=== PATIENT | female | born 1980 | race Caucasian/White ===

== ENCOUNTER 2017-09-14 09:05 | Inpatient (IN) ==
[2017-09-14] MEDS ORDERED: Ketorolac 30 MG/ML VIAL IVP ONE (09:28)
[2017-09-14] MEDS ORDERED: 0.9 % Sodium Chloride 1,000 ML IVC ONE (09:28)
[2017-09-14] MEDS ORDERED: Ondansetron 4 MG/2 ML VIAL IVP ONE (09:29)
--- NOTE | 2017-09-14 09:34 | Emergency Department Note ---
Disposition Clinical Impression: Renal calculus Disposition: Home, Self-Care Condition: Good General Adult HPI - General Chief complaint: ED Nausea/Vomiting/Diarrhea Stated complaint: "infected kidney stone" Time Seen by Provider: 09/14/17 09:17 Source: patient Limitations: no limitations Nursing Notes Reviewed: Yes Vital Signs Reviewed: Yes - History of Present Illness HPI Narrative: This is a 37 year-old female with history of hypothyroidism and depression who presents with colicky left flank pain for the past 3 days. She was evaluated at [facility] shortly after symptom onset and found to have a proximal 2.2 mm renal calculus. UA showed infection. Patient was started on Bactrim but switched to Macrobid after the culture showed resistance. Patient presents to the ED this morning with numerous episodes of vomiting over the past 5 hours. She also reports left flank but it has decreased in intensity and become intermittent. No measured fevers. She reports urgency but no dysuria or hematuria. Pt Subjective Complaint: Infected Kidney Stone Onset (ago): day(s) (3) Location: left Radiation: flank Pain Severity: mild Pain Scale: 0 Quality: aching Consistency: intermittent Improves with: nothing Worsens with: nothing Associated symptoms: Reports: nausea/vomiting, other (chills, no measured fevers ). Denies: chest pain, shortness of breath - Related Data Home Medications Medication Instructions Recorded Confirmed FLUoxetine HCl [Prozac] 20 mg PO DAILY 09/14/17 09/14/17 HYDROcodone/Acet 5/325 mg [[place] 1 tab PO Q6H PRN 09/14/17 09/14/17 5-325 mg] Levothyroxine Sodium [Synthroid] [place] [address]/14/17 09/14/17 Levothyroxine [Synthroid] [place] [address]/14/17 09/14/17 Nitrofurantoin Monohyd/M-Cryst 100 mg PO BID 09/14/17 09/14/17 [Macrobid 100 mg Capsule] Allergies Allergy/AdvReac Type Severity Reaction Status Date / Time aspirin Allergy Vomiting Verified 09/14/17 11:15 All systems ED: reviewed and negative except as stated. Constitutional: Reports: chills. Denies: fever Cardiovascular: Denies: chest pain Respiratory: Denies: dyspnea Gastrointestinal: Reports: nausea, vomiting. Denies: abdominal pain Genitourinary: Reports: urgency. Denies: dysuria, hematuria Musculoskeletal: Reports: as per HPI Past Medical History - Past Medical History Medical history: Reports: kidney stones, renal disease, thyroid disease Psychiatric history: Reports: depression MEDICAL RESEARCH TECH history: Reports: bilateral tubal ligation - Social History Smoking Status: Current every day smoker Smokeless Tobacco Status: No Alcohol use: Reports: none Drug use: Reports: none Physical Exam - General Limitations: no limitations General appearance: alert, in no apparent distress - Head Head exam: atraumatic, normocephalic - Eye Eye exam: Present: normal appearance - ENT ENT exam: normal exam, mucous membranes moist - Respiratory Respiratory exam: Present: normal lung sounds bilaterally. Absent: respiratory distress - Cardiovascular Cardiovascular exam: Present: regular rate, normal rhythm, normal heart sounds - Abdominal Exam Abdominal exam: Present: soft, Non-Tender. Absent: distention - Extremities Exam Extremities exam: Present: normal inspection - Neurological Exam Neurological exam: Present: alert, oriented X3. Absent: motor sensory deficit - Psychiatric Psychiatric exam: Present: normal affect, normal mood - Skin Skin exam: Present: warm, dry, intact Course - Reevaluation(s) Reevaluation #1: On recheck, patient remains comfortable-appearing. Reviewed test results and treatment options with patient. She has elected to be admitted for nephrostomy tube placement and urology consult. Time: 11:02 - Consultations Consultation #1: Reviewed case with Dr. Treadwell. Patient may be admitted for perc-nephrostomy tube by IR, but since she is not ill-appearing, follow-up with Dr. Treadwell tomorrow in clinic at 10:15 is also an option. Time: 10:53 Vital Signs Temperature 98.6 F 09/14/17 09:06 Pulse Rate 94 09/14/17 09:06 Respiratory Rate 18 09/14/17 09:06 Blood Pressure 121/79 09/14/17 09:06 O2 Sat by Pulse Oximetry 98 09/14/17 09:06 Temperature 100.8 F H 09/14/17 19:34 Pulse Rate 72 09/14/17 19:34 Respiratory Rate 15 09/14/17 19:34 Blood Pressure 104/61 09/14/17 19:34 O2 Sat by Pulse Oximetry 97 09/14/17 19:34 Oxygen Delivery Oxygen Delivery Room Air Medical Decision Making - Lab Data Lab results reviewed: Yes I reviewed the patient's lab results. Result diagrams: 09/14/17 09:15 09/14/17 09:15 Lab Results 09/14/17 09/14/17 09/14/17 Range/Units 09:15 09:15 09:15 WBC 9.7 (4.3-11.1) K/mcL RBC 3.92 (3.82-4.97) M/mcL Hgb 11.8 (11.5-15.4) g/dL Hct 35.2 L (35.3-44.9) % MCV 89.8 (83.0-100.0) fL MCH 30.1 (28.0-33.3) pg MCHC 33.5 (31.6-35.5) g/dL RDW 12.2 (11.5-14.5) % Plt Count 261 (140-400) K/mcL MPV 12.0 (9.4-12.4) fL Immature Gran % 0.3 (0-4) % Seg Neutrophils % 78.9 % Lymphocytes % 10.6 % Monocytes % 8.9 % Eosinophils % 0.9 % Basophils % 0.4 % Neutrophils # 7.6 (1.6-8.9) K/mcL Lymphocytes # 1.0 (0.6-4.6) K/mcL Monocytes # 0.9 (0.0-1.3) K/mcL Eosinophils # 0.1 (0.0-0.6) K/mcL Basophils # 0.0 (0.0-0.2) K/mcL PT 11.5 (9.4-12.1) Seconds INR 1.1 Sodium 136 (136-145) mEq/L Potassium 4.0 (3.5-5.1) mEq/L Chloride 108 H (98-107) mEq/L Carbon Dioxide 22 L (23-29) mEq/L BUN 11 (6-20) mg/dL Creatinine 0.87 (0.60-1.20) mg/dL Est GFR ( Amer) > 60 (> 60) Est GFR (Non-Af Amer) > 60 (> 60) BUN/Creatinine Ratio 13 (6-26) Glucose 92 (70-105) mg/dL Calculated Osmolality 281 (280-300) Calcium 8.8 (8.6-10.3) mg/dL Urine Color (Yellow) Urine Clarity (Clear) Urine pH (5.0-8.0) pH Units Ur Specific Joice (1.010-1.025) Urine Protein (Neg-Trace) mg/dL Urine Glucose (UA) (Normal) mg/dL Urine Ketones (Negative) mg/dL Urine Blood (Negative) Urine Nitrite (Negative) Urine Bilirubin (Negative) Urine Urobilinogen (Normal) mg/dL Ur Leukocyte Esterase (Negative) Urine Microscopic RBC (0-3) per hpf Urine Microscopic WBC (0-3) per hpf Ur Squamous Epith Cells (None-Few) per lpf Urine Bacteria (None-Few) per hpf Hyaline Casts (None-Few) per lpf Ur Culture Indicated? (NO) 09/14/17 Range/Units 09:32 WBC (4.3-11.1) K/mcL RBC (3.82-4.97) M/mcL Hgb (11.5-15.4) g/dL Hct (35.3-44.9) % MCV (83.0-100.0) fL MCH (28.0-33.3) pg MCHC (31.6-35.5) g/dL RDW (11.5-14.5) % Plt Count (140-400) K/mcL MPV (9.4-12.4) fL Immature Gran % (0-4) % Seg Neutrophils % % Lymphocytes % % Monocytes % % Eosinophils % % Basophils % % Neutrophils # (1.6-8.9) K/mcL Lymphocytes # (0.6-4.6) K/mcL Monocytes # (0.0-1.3) K/mcL Eosinophils # (0.0-0.6) K/mcL Basophils # (0.0-0.2) K/mcL PT (9.4-12.1) Seconds INR Sodium (136-145) mEq/L Potassium (3.5-5.1) mEq/L Chloride (98-107) mEq/L Carbon Dioxide (23-29) mEq/L BUN (6-20) mg/dL Creatinine (0.60-1.20) mg/dL Est GFR ( Amer) (> 60) Est GFR (Non-Af Amer) (> 60) BUN/Creatinine Ratio (6-26) Glucose (70-105) mg/dL Calculated Osmolality (280-300) Calcium (8.6-10.3) mg/dL Urine Color Yellow (Yellow) Urine Clarity Slightly Hazy (Clear) Urine pH 6.5 (5.0-8.0) pH Units Ur Specific Joice 1.013 (1.010-1.025) Urine Protein 30 H (Neg-Trace) mg/dL Urine Glucose (UA) Normal (Normal) mg/dL Urine Ketones 40 H (Negative) mg/dL Urine Blood Negative (Negative) Urine Nitrite Negative (Negative) Urine Bilirubin Negative (Negative) Urine Urobilinogen Normal (Normal) mg/dL Ur Leukocyte Esterase Large H (Negative) Urine Microscopic RBC 5-15 H (0-3) per hpf Urine Microscopic WBC TNTC H (0-3) per hpf Ur Squamous Epith Cells Many H (None-Few) per lpf Urine Bacteria Few (None-Few) per hpf Hyaline Casts Few (None-Few) per lpf Ur Culture Indicated? NO. A (NO)
[2017-09-14 09:44] LABS: Bilirubin,Urine Negative (Negative); Blood,Urine Negative (Negative); Color,Urine Yellow (Yellow); Glucose,Urine (UA) Normal (Normal); Ketones,Urine 40 mg/dL (Negative); Leukocyte Esterase,Urine Large (Negative); Nitrite,Urine Negative (Negative); PH,Urine 6.5 pH Units (5.0-8.0); Protein,Urine 30 mg/dL (Neg-Trace); Specific Gravity,Urine 1.013 (1.010-1.025); Urobilinogen,Urine Normal (Normal)
[2017-09-14 09:45] LABS: Bacteria,Urine Few per hpf (None-Few); Hyaline Casts,Urine Few per lpf (None-Few); Squamous Epithelial Cell,Urine Many per lpf (None-Few); WBC,Urine TNTC per hpf (0-3)
[2017-09-14 09:46] LABS: Clarity,Urine Slightly Hazy (Clear)
[2017-09-14 09:47] LABS: Basophils % 0.4 %; Eosinophils # 0.1 K/mcL (0.0-0.6); Eosinophils % 0.9 %; Hematocrit 35.2 % (35.3-44.9); Hemoglobin 11.8 g/dL (11.5-15.4); Immature Granulocytes % 0.3 % (0-4); Lymphocytes % 10.6 %; Mean Corpuscular HGB Conc 33.5 g/dL (31.6-35.5); Mean Corpuscular Hemoglobin 30.1 pg (28.0-33.3); Mean Corpuscular Volume 89.8 fL (83.0-100.0); Monocytes # 0.9 K/mcL (0.0-1.3); Monocytes % 8.9 %; Neutrophils # 7.6 K/mcL (1.6-8.9); Platelet Count 261 K/mcL (140-400); Red Blood Count 3.92 M/mcL (3.82-4.97); Red Cell Distribution Width 12.2 % (11.5-14.5); Segmented Neutrophils % 78.9 %
[2017-09-14 09:48] LABS: BUN/Creatinine Ratio 13 (6-26); Blood Urea Nitrogen 11 mg/dL (6-20); Calcium 8.8 mg/dL (8.6-10.3); Carbon Dioxide 22 mEq/L (23-29); Chloride 108 mEq/L (98-107); Glucose 92 mg/dL (70-105); Osmolality,Calculated 281 (280-300); Sodium 136 mEq/L (136-145); eGFR For African Americans > 60 (> 60); eGFR For Non-African Americans > 60 (> 60)
[2017-09-14 12:17] LABS: INR 1.1; Prothrombin Time 11.5 Seconds (9.4-12.1)
[2017-09-14] MEDS ORDERED: Naloxone 0.4 MG/ML INJ IVP PRN (12:30)
[2017-09-14] MEDS ORDERED: Acetaminophen 325 MG TABLET PO PRN (12:30)
[2017-09-14] MEDS ORDERED: Ondansetron 4 MG/2 ML VIAL IVP PRN (12:30)
--- NOTE | 2017-09-14 13:04 | Internal Med History&Physical ---
Date of Encounter: 09/14/17 Time of Encounter: 11:20 Internal Medicine - H&P: HPI Chief complaint: Fever, N/V Admitted From: Emergency Dept Plans for Post Hospital Care: Home History of present illness: Ms. Garcia is a 37 year old female with known PMH of Hypothyroidism, anxiety, and depression pt presented to ER with intractable nausea and vomiting form last 2 days. She went to [facility] ER on 09/11/17 with Left flank colicky pain, and founf to have a 2.2 CM Left renal calculi with mild to moderate hydronephrosis. She does have UTI so sent her home on Bactrim, later urine cx came back as bactrim resistant E. Coli so switched her to Macrobid. However now she presented to with weakness, fever, chills and intractable N/V. Still has intermittent left flank pain. Past Med Surg Social Fam HX - Past Medical History Medical history: kidney stones, renal disease, thyroid disease Psychiatric history: depression - Past Surgical History Additional surgical history: CYST REMOVED LT HAND. CARPAL TUNNEL SURGERY. tubes in ears. - Social History Smoking Status: Current every day smoker Packs per day: 1/2 to full Smokeless Tobacco Status: No Alcohol use: none Drug use: none - Family History Mother Living Status: Still Living Hx Family Endocrine Disorder: Yes (Diabetic) Father Living Status: Age at : 45 Cause of : Injury Internal Medicine - H&P: Meds FLUoxetine HCl [Prozac] 20 mg PO DAILY 09/14/17 [History] HYDROcodone/Acet 5/325 mg [[place] 5-325 mg] 1 tab PO Q6H PRN 09/14/17 [History] Levothyroxine Sodium [Synthroid] 200 mcg PO 30 09/14/17 [History] Levothyroxine [Synthroid] [place] [address]/14/17 [History] Nitrofurantoin Monohyd/M-Cryst [Macrobid 100 mg Capsule] 100 mg PO BID 09/14/17 [History] 3 Allergy/AdvReac Type Severity Reaction Status Date / Time aspirin Allergy Vomiting Verified 09/14/17 11:15 All Systems PM: A 10-system review of systems was performed and is negative for pertinent findings except as documented above in the HPI. Review of systems: All the systems are reviewed everything is benign except the systems and symptoms I mentioned in the history of present illness - Constitutional Vitals: Temp Pulse Resp BP Pulse Ox 98.4 F 60 14 90/49 96 09/14/17 11:55 09/14/17 11:55 09/14/17 11:55 09/14/17 11:55 09/14/17 11:55 General appearance: Present: cooperative, mild distress, A&O X 3, answers questions appropriately - Head Head exam: Present: atraumatic, normal inspection - Neck Neck exam general surgery: Present: supple - Respiratory Respiratory exam: Present: CTAB. Absent: accessory muscle use, rales, rhonchi, wheezes - Cardiovascular Cardiovascular exam: Present: RRR, +S1, +S2. Absent: systolic murmur, tachycardia - GI/Abdominal GI/Abdominal exam: Present: normal bowel sounds, soft. Absent: rebound, rigid, tenderness - Extremities Exam Extremities exam: Absent: calf tenderness, pedal edema, tenderness - Back Exam Back exam: Absent: CVA tenderness (L), CVA tenderness (R) - Neurological Exam Neurological exam: Present: alert, oriented X3 - Psychiatric Psychiatric exam: Present: normal affect, normal mood Internal Med - H&P Results - Labs CBC & Chem 7: 09/14/17 09:15 09/14/17 09:15 - Assessment and plan (1) UTI (urinary tract infection) Current Visit: Yes Status: Acute Assessment and plan: Admit the pt into Med Surg She failed out pt therapy reviewed urine cx from 09/11 growing E. coli since sensitivity to fluoroquinolones So started her on Cipro IV hydration Qualifiers: Urinary tract infection type: acute cystitis Hematuria presence: without hematuria Qualified Code(s): N30.00 - Acute cystitis without hematuria (2) Obstructive uropathy Current Visit: No Status: Acute Assessment and plan: Reviewed CT of Abd from 09/11/17 showed mild to mortared hydronephrosis also has 2.2 cm size left renal pelvic calculi ER attending already talked to Urologist who recommend IR consult for possible percutaneous nephrosotomy continue symptomatic and supportive care pain medication is needed (3) Renal calculus, left Current Visit: Yes Status: Acute Assessment and plan: Urology consulted possible lithotripsy in AM (4) Anxiety Current Visit: Yes Status: Acute Assessment and plan: Resumed home medications (5) Tobacco dependence Current Visit: Yes Status: Acute Assessment and plan: Counseled to quit smoking placed on nicotine patch - Time Spent With Patient Total time spent is greater than 50% in coordination of care (as documented) at patient's floor/unit and/or counseling patient:
--- NOTE | 2017-09-14 13:06 | Urology - Consult Note ---
Date of Encounter: 09/14/17 Time of Encounter: 13:04 - Assessment and Plan (1) Renal calculus, left Current Visit: Yes Status: Acute Assessment and plan: 37-year-old woman with a large left renal stone is seen in consultation. Given the size of her stone and her infection, I think it is reasonable to proceed with a left nephrostomy tube placement. We reviewed the risks of the procedure. This will provide us access for eventual left percutaneous nephrolithotomy. I answered all her questions. She is willing to proceed. (2) UTI (urinary tract infection) Current Visit: Yes Status: Acute Assessment and plan: We will continue her on IV antibiotic for now. We can transition over to ciprofloxacin. Qualifiers: Urinary tract infection type: acute cystitis Hematuria presence: without hematuria Qualified Code(s): N30.00 - Acute cystitis without hematuria (3) Obstructive uropathy Current Visit: No Status: Acute Urology CN:HPI Consult date: 09/14/17 Reason for consult Urology: Other (Left kidney stone) History of present illness: 37-year-old woman with a history of nephrolithiasis has been admitted for a UTI with an obstructing left renal stone. She had a CT scan on 09/11/2017 which showed a 2.2 cm left ureteropelvic junction stone with evidence hydronephrosis. She was diagnosed with a urinary tract infection. It was resistant to Bactrim. She then developed nausea and vomiting. She came back to the emergency room. She was given IV antibiotic and was admitted for further care. I discussed with the patient her stone and treatment options. Given the size, she would be best treated with a left percutaneous nephrolithotomy. I would recommend placement of a nephrostomy tube which would allow us to obtain access at an earlier time point. She is agreeable with this approach. Past Med Surg Social Fam HX - Past Medical History Medical history: kidney stones, renal disease, thyroid disease Psychiatric history: depression - Past Surgical History Additional surgical history: CYST REMOVED LT HAND. CARPAL TUNNEL SURGERY. tubes in ears. - Social History Smoking Status: Current every day smoker Packs per day: 1/2 to full Smokeless Tobacco Status: No Alcohol use: none Drug use: none - Family History Mother Living Status: Still Living Hx Family Endocrine Disorder: Yes (Diabetic) Father Living Status: Age at : 45 Cause of : Injury Medications and Allergies FLUoxetine HCl [Prozac] 20 mg PO DAILY 09/14/17 [History] HYDROcodone/Acet 5/325 mg [[place] 5-325 mg] 1 tab PO Q6H PRN 09/14/17 [History] Levothyroxine Sodium [Synthroid] [place] [address]/14/17 [History] Levothyroxine [Synthroid] [place] [address]/14/17 [History] Nitrofurantoin Monohyd/M-Cryst [Macrobid 100 mg Capsule] 100 mg PO BID 09/14/17 [History] 3 Allergy/AdvReac Type Severity Reaction Status Date / Time aspirin Allergy Vomiting Verified 09/14/17 11:15 Review of Systems - Constitutional no chills, no fever(s) - EENT Nose, mouth and throat: no dizziness - Cardiovascular no chest pain - Respiratory no dyspnea - Gastrointestinal nausea, vomiting - Genitourinary Genitourinary: flank pain, no hematuria - Musculoskeletal no back pain - Integumentary no erythema, no rash - Neurological no weakness - Psychiatric no suicidal ideation - Hematologic/Lymphatic no easy bleeding - Allergic/Immunologic no wheezing Exam Initial Vital Signs Temp Pulse Resp BP Pulse Ox 98.6 F 94 18 121/79 98 09/14/17 09:06 09/14/17 09:06 09/14/17 09:06 09/14/17 09:06 09/14/17 09:06 - General physical appearance Present: well developed, well nourished, no distress - Eyes Absent: icteric - ENT Present: normal nares - Neck Present: trachea midline - Respiratory Present: normal respiratory effort - Cardiovascular Cardiovascular exam IM: RRR - Abdomen Abdomen: Present: soft - Integumentary Present: no rash - Neurologic Present: normal coordination - Musculoskeletal Present: normal gait Urology Results - Labs 09/14/17 09:15 09/14/17 09:15 Abnormal lab results Hct 35.2 % (35.3-44.9) L 09/14/17 09:15 Chloride 108 mEq/L (98-107) H 09/14/17 09:15 Carbon Dioxide 22 mEq/L (23-29) L 09/14/17 09:15 Urine Protein 30 mg/dL (Neg-Trace) H 09/14/17 09:32 Urine Ketones 40 mg/dL (Negative) H 09/14/17 09:32 Ur Leukocyte Esterase Large (Negative) H 09/14/17 09:32 Urine Microscopic RBC 5-15 per hpf (0-3) H 09/14/17 09:32 Urine Microscopic WBC TNTC per hpf (0-3) H 09/14/17 09:32 Ur Squamous Epith Cells Many per lpf (None-Few) H 09/14/17 09:32 Ur Culture Indicated? NO. (NO) A 09/14/17 09:32 All other labs normal. - Imaging CT scan - abdomen: report reviewed, image reviewed CT scan - pelvis: report reviewed, image reviewed Consult Discharge Plan - Plan Referrals: Kenny Alexandra, [employer] [Primary Care Provider] -
[2017-09-14] MEDS ORDERED: 0.9 % Sodium Chloride 500 ML ONE ×2 (13:50→14:04)
[2017-09-14] MEDS ORDERED: *HR* FentaNYL (PF) 100 MCG/2 ML VIAL IVP ONE ×3 (13:54→14:37)
[2017-09-14] MEDS ORDERED: *HR* Midazolam HCl 2 MG/2 ML VIAL IVP ONE ×2 (13:54→14:32)
[2017-09-14] MEDS ORDERED: *HR* FentaNYL (PF) 100 MCG/2 ML VIAL ONE ×2 (14:25→14:38)
[2017-09-14] MEDS ORDERED: *HR* Midazolam HCl 2 MG/2 ML VIAL ONE (14:25)
--- NOTE | 2017-09-14 16:13 | IR Procedure Note ---
Date of procedure: 09/14/17 Consent Obtained: Written consent Timeout: Correct patient and procedure verified, Correct site verified, Time out performed, Skin prep completed Local anesthetic: Lidocaine 1% Indications: Left sided obstruction, nephrolithiasis Procedure Performed: Left perc neph tube placement Was there an custody assistant present: No Site/Technique: 10fr drain placement. Results/Findings: Draining well. Minimal contrast extended into ureter around stone. Estimated blood loss (cc): 1 Complications: None; Tolerated procedure well Post Procedure Treatment Plan: Monitoring in pts room Specimen: n/a
[2017-09-14] MEDS: Nicotine 21 MG PATCH.TD24 TD SCH (16:32)
[2017-09-14] MEDS: 0.9 % Sodium Chloride 1,000 ML IVC SCH (16:41)
[2017-09-14] MEDS: *HR* HYDROcodone/Acet 5/325 mg TABLET PO PRN ×2 (16:41→22:08)
[2017-09-14] MEDS: *HR* Promethazine 25 MG/ML VIAL IVP PRN (22:08)
[2017-09-15 04:48] LABS: Basophils % 0.2 %; Eosinophils # 0.1 K/mcL (0.0-0.6); Eosinophils % 1.5 %; Hematocrit 32.1 % (35.3-44.9); Hemoglobin 10.5 g/dL (11.5-15.4); Immature Granulocytes % 0.4 % (0-4); Lymphocytes # 0.8 K/mcL (0.6-4.6); Lymphocytes % 9.1 %; Mean Corpuscular HGB Conc 32.7 g/dL (31.6-35.5); Mean Corpuscular Hemoglobin 29.8 pg (28.0-33.3); Mean Corpuscular Volume 91.2 fL (83.0-100.0); Monocytes # 1.2 K/mcL (0.0-1.3); Monocytes % 12.9 %; Neutrophils # 6.9 K/mcL (1.6-8.9); Platelet Count 227 K/mcL (140-400); Red Blood Count 3.52 M/mcL (3.82-4.97); Red Cell Distribution Width 12.1 % (11.5-14.5); Segmented Neutrophils % 75.9 %
[2017-09-15] MEDS: 0.9 % Sodium Chloride 1,000 ML IVC SCH (04:52)
[2017-09-15] MEDS: *HR* Promethazine 25 MG/ML VIAL IVP PRN (05:04)
[2017-09-15] MEDS: *HR* HYDROcodone/Acet 5/325 mg TABLET PO PRN (05:05)
[2017-09-15 05:08] LABS: BUN/Creatinine Ratio 10 (6-26); Blood Urea Nitrogen 9 mg/dL (6-20); Calcium 8.1 mg/dL (8.6-10.3); Carbon Dioxide 21 mEq/L (23-29); Chloride 111 mEq/L (98-107); Glucose 97 mg/dL (70-105); Osmolality,Calculated 281 (280-300); Potassium 4.1 mEq/L (3.5-5.1); Sodium 136 mEq/L (136-145); eGFR For African Americans > 60 (> 60); eGFR For Non-African Americans > 60 (> 60)
[2017-09-15] MEDS ORDERED: *HR* Enoxaparin 40 MG/0.4 ML SYRINGE SQ SCH (06:00)
[2017-09-15] MEDS ORDERED: Levothyroxine 25 MCG TABLET PO SCH (06:30)
[2017-09-15 07:33] VITALS: BP 93/60
--- NOTE | 2017-09-15 07:54 | Urology Progress Note ---
Date of Encounter: 09/15/17 Time of Encounter: 07:52 - Assessment and Plan (1) Renal calculus, left Current Visit: Yes Status: Acute Assessment and plan: s/p left neph tube placement. Will plan for left PCNL at a later date. Okay to d/c home when clear per IM. Continue ciprofloxacin upon discharge. (2) UTI (urinary tract infection) Current Visit: Yes Status: Acute Qualifiers: Urinary tract infection type: acute cystitis Hematuria presence: without hematuria Qualified Code(s): N30.00 - Acute cystitis without hematuria (3) Obstructive uropathy Current Visit: No Status: Acute Progress Note Narrative: 37 year old woman with a history of large left renal stone. She had a left nephrostomy tube placed yesterday. Doing well today. Objective Initial Vital Signs Temp Pulse Resp BP Pulse Ox 98.6 F 94 18 121/79 98 09/14/17 09:06 09/14/17 09:06 09/14/17 09:06 09/14/17 09:06 09/14/17 09:06 - General physical appearance Present: well developed, well nourished, no distress - Respiratory Present: normal respiratory effort - Abdomen Present: soft (Clear urine from left neph tube) - Labs 09/15/17 04:04 09/15/17 04:04 Diabetes panel 09/15/17 Range/Units 04:04 Sodium 136 (136-145) mEq/L Potassium 4.1 (3.5-5.1) mEq/L Chloride 111 H (98-107) mEq/L Carbon Dioxide 21 L (23-29) mEq/L BUN 9 (6-20) mg/dL Creatinine 0.91 (0.60-1.20) mg/dL Glucose 97 (70-105) mg/dL Calcium 8.1 L (8.6-10.3) mg/dL Calcium panel 09/15/17 Range/Units 04:04 Calcium 8.1 L (8.6-10.3) mg/dL Pituitary panel 09/15/17 Range/Units 04:04 Sodium 136 (136-145) mEq/L Potassium 4.1 (3.5-5.1) mEq/L Chloride 111 H (98-107) mEq/L Carbon Dioxide 21 L (23-29) mEq/L BUN 9 (6-20) mg/dL Creatinine 0.91 (0.60-1.20) mg/dL Glucose 97 (70-105) mg/dL Calcium 8.1 L (8.6-10.3) mg/dL Adrenal panel 09/15/17 Range/Units 04:04 Sodium 136 (136-145) mEq/L Potassium 4.1 (3.5-5.1) mEq/L Chloride 111 H (98-107) mEq/L Carbon Dioxide 21 L (23-29) mEq/L BUN 9 (6-20) mg/dL Creatinine 0.91 (0.60-1.20) mg/dL Glucose 97 (70-105) mg/dL Calcium 8.1 L (8.6-10.3) mg/dL - VTE Documentation of Mechanical Device: Intermittent pneumatic compression device Consult Discharge Plan - Plan Referrals: Kenny Alexandra, [employer] [Primary Care Provider] -
[2017-09-15] MEDS: Nicotine 21 MG PATCH.TD24 TD SCH (08:42)
[2017-09-15] MEDS ORDERED: FLUoxetine 20 MG CAPSULE PO SCH (09:00)
--- NOTE | 2017-09-15 10:44 | Discharge Summary ---
Date of Encounter: 09/15/17 Time of Encounter: 09:30 - Discharge Diagnosis (1) Obstructive uropathy Priority: Primary Status: Acute (2) UTI (urinary tract infection) Priority: Primary Status: Acute Qualifiers: Urinary tract infection type: acute cystitis Hematuria presence: without hematuria Qualified Code(s): N30.00 - Acute cystitis without hematuria (3) Renal calculus, left Priority: Primary Status: Acute (4) Anxiety Priority: Secondary Status: Acute (5) Tobacco dependence Priority: Secondary Status: Acute Hospital course: History of present illness: Ms. Garcia is a 37 year old female with known PMH of Hypothyroidism, anxiety, and depression pt presented to ER with intractable nausea and vomiting form last 2 days. She went to [facility] ER on 09/11/17 with Left flank colicky pain, and founf to have a 2.2 CM Left renal calculi with mild to moderate hydronephrosis. She does have UTI so sent her home on Bactrim, later urine cx came back as bactrim resistant E. Coli so switched her to Macrobid. However now she presented to with weakness, fever, chills and intractable N/V. Still has intermittent left flank pain. She was admitted. She was seen by urology in consultation who proceeded with a left percutaneous nephrostomy tube placement. She was done on the evening of September 14. She tolerated the procedure well and on follow-up urology stated patient was stable for discharge. Land for left percutaneous nephrolithotomy on follow-up. Patient was placed on Cipro. Urine culture on September 11 showed Escherichia coli sensitive to Cipro. Patient is currently day #2 of a planned 14 day course of Cipro. This can be adjusted by urology with regards to duration on follow-up visit. On day of discharge patient was feeling well. She had some mild left flank pain which was much improved. No fevers or chills. She was tolerating a diet. No nausea. Asking to go home. The patient was initially admitted inpatient status, but she improved much faster than expected and is being discharged after only 1 night stay. - Time Spent with Patient Total time spent providing and/or coordinating discharge services: Less than 30 minutes - Discharge Medications Home Medications: FLUoxetine HCl [Prozac] 20 mg PO DAILY 09/14/17 [History] HYDROcodone/Acet 5/325 mg [[place] 5-325 mg] 1 tab PO Q6H PRN 09/14/17 [History] Levothyroxine Sodium [Synthroid] [place] [address]/14/17 [History] Levothyroxine [Synthroid] [place] [address]/14/17 [History] Nitrofurantoin Monohyd/M-Cryst [Macrobid 100 mg Capsule] 100 mg PO BID 09/14/17 [History] Allergies/Adverse Reactions: 3 Allergy/AdvReac Type Severity Reaction Status Date / Time aspirin Allergy Vomiting Verified 09/14/17 11:15 Date of admission: 09/14/17 11:22 Primary care physician: Kenny Alexandra CNP Discharging clinician: Byron Bland Anticipated date of discharge: 09/15/17 - Constitutional Vitals: Temp Pulse Resp BP Pulse Ox 97.6 F 60 17 93/60 96 09/15/17 08:34 09/15/17 08:34 09/15/17 08:34 09/15/17 08:34 09/15/17 08:34 General appearance: Present: cooperative, mild distress, A&O X 3, answers questions appropriately - Head Head exam: Present: atraumatic, normocephalic - Eye Eye exam: Present: PERRL, conjuntiva pink, sclera anicteric Pupils: Present: PERRL - Neck Neck exam general surgery: Present: supple, trachea midline. Absent: lymphadenopathy - Respiratory Respiratory exam: Present: CTAB. Absent: accessory muscle use, rales, rhonchi, wheezes - Cardiovascular Cardiovascular exam: Present: RRR, +S1, +S2. Absent: diastolic murmur, gallop, rubs, systolic murmur - GI/Abdominal GI/Abdominal exam: Present: normal bowel sounds, soft, no peritoneal signs. Absent: distended, tenderness Additional comments: Left costovertebral angle tenderness - Extremities Exam Extremities exam: Present: warm, radial pulses palpable and symmetrical. Absent : calf tenderness, cyanotic, pedal edema - Neurological Exam Neurological exam: Present: CN II-XII intact, oriented X3, no focal deficits. Absent: pronater drift, facial droop, speech deficit - Skin Skin exam: Present: dry, intact - Patient Status Disposition: Home, Self-Care Condition: Good Functional capacity at discharge: independent ambulation Overall status at discharge: patient is progressing back to baseline - Discharge Instructions Instructions: Kidney Stones (GEN) Follow Up With: Kenny Alexandra [employer]ATIC FACILITY MANAGER [Primary Care Provider] - Additional Instructions: Follow-up with urology as arranged. Keep well hydrated, drink at least 2-1/2 L of fluid daily. Return immediately should she have fevers, chills or worsening pain Tobacco cessation recommended - VTE Documentation of Mechanical Device: Intermittent pneumatic compression device
== END 2017-09-15 13:17 | disposition home or self-care (01) | DRG 463 ==
LOC: EMEROO 09:05 → 3ANU 11:22
PROVIDERS: ADMIT Family Medicine; ATTEND Family Medicine

== ENCOUNTER 2018-07-26 20:57 | Inpatient (IN) ==
[2018-07-26] MEDS ORDERED: 0.9 % Sodium Chloride 1,000 ML IVC ONE ×2 (22:10→22:24)
[2018-07-26] MEDS ORDERED: *HR* Morphine Immed Rel 30 MG TABLET PO STA (22:13)
[2018-07-26] MEDS ORDERED: Ondansetron 4 MG/2 ML VIAL IVP ONE (22:14)
[2018-07-26 22:19] LABS: Bilirubin,Urine Small (Negative); Blood,Urine Large (Negative); Clarity,Urine Turbid (Clear); Color,Urine Yellow (Yellow); Glucose,Urine (UA) Normal (Normal); Ketones,Urine Negative (Negative); Leukocyte Esterase,Urine Large (Negative); Nitrite,Urine Negative (Negative); Protein,Urine 100 mg/dL (Neg-Trace); Specific Gravity,Urine 1.015 (1.010-1.025); Urobilinogen,Urine Normal (Normal)
[2018-07-26 22:24] LABS: Basophils % 0.2 %; Eosinophils # 0.1 K/mcL (0.0-0.6); Eosinophils % 0.5 %; Hematocrit 35.5 % (35.3-44.9); Hemoglobin 11.5 g/dL (11.5-15.4); Immature Granulocytes % 2.5 % (0-4); Lymphocytes # 1.1 K/mcL (0.6-4.6); Lymphocytes % 5.5 %; Mean Corpuscular HGB Conc 32.4 g/dL (31.6-35.5); Mean Corpuscular Hemoglobin 29.1 pg (28.0-33.3); Mean Corpuscular Volume 89.9 fL (83.0-100.0); Mean Platelet Volume 12.3 fL (9.4-12.4); Monocytes # 0.7 K/mcL (0.0-1.3); Monocytes % 3.8 %; Platelet Count 173 K/mcL (140-400); Red Blood Count 3.95 M/mcL (3.82-4.97); Red Cell Distribution Width 14.5 % (11.5-14.5); Segmented Neutrophils % 87.5 %
[2018-07-26 22:28] LABS: Albumin 3.1 g/dL (3.5-5.7); Albumin/Globulin Ratio 1.1 (1.1-2.2); Bilirubin,Direct 0.1 mg/dL (0.0-0.2); Bilirubin,Indirect 0.2 mg/dL (0.0-1.2); Bilirubin,Total 0.3 mg/dL (0.3-1.0); Calcium 8.5 mg/dL (8.6-10.3); Globulin 2.7 g/dL (2.4-3.5); Potassium 3.7 mEq/L (3.5-5.1); Total Protein 5.8 g/dL (6.4-8.9)
[2018-07-26 22:44] LABS: RBC,Urine 50-100 per hpf (0-3); Squamous Epithelial Cell,Urine Many per lpf (None-Few); WBC,Urine 50-100 per hpf (0-3)
[2018-07-26 22:45] LABS: Bacteria,Urine Moderate per hpf (None-Few); Hyaline Casts,Urine None Seen per lpf (None-Few)
[2018-07-26 22:48] LABS: Burr Cells 1+ (Not Present); Dohle Bodies Present (Not Present)
--- NOTE | 2018-07-26 23:44 | Emergency Department Note ---
Disposition Clinical Impression: Ureteral stone, KYLAH (acute kidney injury), Intractable vomiting, Left flank pain Disposition: Admitted As Inpatient Condition: Fair Referrals: Rosalia Smith CNP [Primary Care Provider] - Forms: Work/School Release, ED Satisfaction Letter General Adult HPI - General Chief complaint: ED General Medical Stated complaint: Kidney infection sent by Dr Cancino Time Seen by Provider: 07/26/18 21:48 Source: patient Limitations: no limitations - History of Present Illness Pain Scale: 6 - Related Data Home Medications Medication Instructions Recorded Confirmed FLUoxetine HCl [Prozac] 20 mg PO DAILY 09/14/17 07/20/18 Levothyroxine Sodium [Synthroid] 200 mcg PO 0630 09/14/17 07/20/18 Oxybutynin [Ditropan] 5 mg PO DAILY 01/28/18 07/20/18 Previous Rx's Medication Instructions Recorded Naproxen [Naprosyn] 500 mg PO BID #10 tablet 07/20/18 Allergies Allergy/AdvReac Type Severity Reaction Status Date / Time aspirin Allergy Vomiting Verified 10/15/17 20:32 Past Medical History - Past Medical History Medical history: Reports: kidney stones, thyroid disease Psychiatric history: Reports: depression 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 - Social History Smoking Status: Current every day smoker Smokeless Tobacco Status: No Alcohol use: Reports: none Drug use: Reports: none Physical Exam - General Limitations: no limitations General appearance: alert Course Vital Signs Temperature 98.4 F 07/26/18 21:10 Pulse Rate 72 07/26/18 21:10 Respiratory Rate 17 07/26/18 21:10 Blood Pressure 118/66 07/26/18 21:10 O2 Sat by Pulse Oximetry 95 07/26/18 21:10 Temperature 98.4 F 07/26/18 21:10 Pulse Rate 72 07/26/18 21:10 Respiratory Rate 17 07/26/18 21:10 Blood Pressure 118/66 07/26/18 21:10 O2 Sat by Pulse Oximetry 95 07/26/18 21:10 Oxygen Delivery Oxygen Delivery Room Air Medical Decision Making - Lab Data Result diagrams: 07/26/18 21:55 07/26/18 21:55 Lab Results 07/26/18 07/26/18 07/26/18 Range/Units 21:52 21:52 21:55 WBC 19.4 H (4.3-11.1) K/mcL RBC 3.95 (3.82-4.97) M/mcL Hgb 11.5 (11.5-15.4) g/dL Hct 35.5 (35.3-44.9) % MCV 89.9 (83.0-100.0) fL MCH 29.1 (28.0-33.3) pg MCHC 32.4 (31.6-35.5) g/dL RDW 14.5 (11.5-14.5) % Plt Count 173 (140-400) K/mcL MPV 12.3 (9.4-12.4) fL Immature Gran % 2.5 (0-4) % Seg Neutrophils % 87.5 % Lymphocytes % 5.5 % Monocytes % 3.8 % Eosinophils % 0.5 % Basophils % 0.2 % Neutrophils # 17.0 H (1.6-8.9) K/mcL Lymphocytes # 1.1 (0.6-4.6) K/mcL Monocytes # 0.7 (0.0-1.3) K/mcL Eosinophils # 0.1 (0.0-0.6) K/mcL Basophils # 0.0 (0.0-0.2) K/mcL Dohle Bodies Present A (Not Present) Uzair Cells 1+ A (Not Present) Sodium (136-145) mEq/L Potassium (3.5-5.1) mEq/L Chloride (98-107) mEq/L Carbon Dioxide (23-29) mEq/L BUN (6-20) mg/dL Creatinine (0.60-1.20) mg/dL Est GFR ( Amer) (> 60) Est GFR (Non-Af Amer) (> 60) BUN/Creatinine Ratio (6-26) Glucose (70-105) mg/dL Calculated Osmolality (280-300) Lactic Acid (0.5-2.2) mmol/L Calcium (8.6-10.3) mg/dL Total Bilirubin (0.3-1.0) mg/dL Direct Bilirubin (0.0-0.2) mg/dL Indirect Bilirubin (0.0-1.2) mg/dL AST (13-39) Units/L ALT (7-52) Units/L Alkaline Phosphatase (34-104) Units/L Serum Total Protein (6.4-8.9) g/dL Albumin (3.5-5.7) g/dL Globulin (2.4-3.5) g/dL Albumin/Globulin Ratio (1.1-2.2) Urine Color Yellow (Yellow) Urine Clarity Turbid A (Clear) Urine pH 6.0 (5.0-8.0) pH Units Ur Specific [place] 1.015 (1.010-1.025) Urine Protein 100 H (Neg-Trace) mg/dL Urine Glucose (UA) Normal (Normal) mg/dL Urine Ketones Negative (Negative) mg/dL Urine Blood Large H (Negative) Urine Nitrite Negative (Negative) Urine Bilirubin Small H (Negative) Urine Urobilinogen Normal (Normal) mg/dL Ur Leukocyte Esterase Large H (Negative) Urine Microscopic RBC 50-100 H (0-3) per hpf Urine Microscopic WBC 50-100 H (0-3) per hpf Ur Squamous Epith Cells Many H (None-Few) per lpf Urine Bacteria Moderate H (None-Few) per hpf Hyaline Casts None Seen (None-Few) per lpf Ur Culture Indicated? NO. A (NO) Urine Test Negative (Negative) 07/26/18 07/26/18 Range/Units 21:55 22:34 WBC (4.3-11.1) K/mcL RBC (3.82-4.97) M/mcL Hgb (11.5-15.4) g/dL Hct (35.3-44.9) % MCV (83.0-100.0) fL MCH (28.0-33.3) pg MCHC (31.6-35.5) g/dL RDW (11.5-14.5) % Plt Count (140-400) K/mcL MPV (9.4-12.4) fL Immature Gran % (0-4) % Seg Neutrophils % % Lymphocytes % % Monocytes % % Eosinophils % % Basophils % % Neutrophils # (1.6-8.9) K/mcL Lymphocytes # (0.6-4.6) K/mcL Monocytes # (0.0-1.3) K/mcL Eosinophils # (0.0-0.6) K/mcL Basophils # (0.0-0.2) K/mcL Dohle Bodies (Not Present) Uzair Cells (Not Present) Sodium 138 (136-145) mEq/L Potassium 3.7 (3.5-5.1) mEq/L Chloride 107 (98-107) mEq/L Carbon Dioxide 21 L (23-29) mEq/L BUN 34 H (6-20) mg/dL Creatinine 1.66 H (0.60-1.20) mg/dL Est GFR ( Amer) 42 L (> 60) Est GFR (Non-Af Amer) 34 L (> 60) BUN/Creatinine Ratio 20 (6-26) Glucose 84 (70-105) mg/dL Calculated Osmolality 293 (280-300) Lactic Acid 0.6 (0.5-2.2) mmol/L Calcium 8.5 L (8.6-10.3) mg/dL Total Bilirubin 0.3 (0.3-1.0) mg/dL Direct Bilirubin 0.1 (0.0-0.2) mg/dL Indirect Bilirubin 0.2 (0.0-1.2) mg/dL AST 11 L (13-39) Units/L ALT 7 (7-52) Units/L Alkaline Phosphatase 76 (34-104) Units/L Serum Total Protein 5.8 L (6.4-8.9) g/dL Albumin 3.1 L (3.5-5.7) g/dL Globulin 2.7 (2.4-3.5) g/dL Albumin/Globulin Ratio 1.1 (1.1-2.2) Urine Color (Yellow) Urine Clarity (Clear) Urine pH (5.0-8.0) pH Units Ur Specific [place] (1.010-1.025) Urine Protein (Neg-Trace) mg/dL Urine Glucose (UA) (Normal) mg/dL Urine Ketones (Negative) mg/dL Urine Blood (Negative) Urine Nitrite (Negative) Urine Bilirubin (Negative) Urine Urobilinogen (Normal) mg/dL Ur Leukocyte Esterase (Negative) Urine Microscopic RBC (0-3) per hpf Urine Microscopic WBC (0-3) per hpf Ur Squamous Epith Cells (None-Few) per lpf Urine Bacteria (None-Few) per hpf Hyaline Casts (None-Few) per lpf Ur Culture Indicated? (NO) Urine Test (Negative) Attestation Statement - Attestation Attestation: I examined this patient and my medical decision-making was reviewed with the Resident Physician. I agree with the documented findings, disposition and treatment plan as described except to the extent set forth below. Patient to the ED, no flank pain. Patient was admitted and left AMA this morning. She was here for a septic stone. Patient had a stent placed. States she wanted to go home so she left AMA. Her pain is worse. I am she is awake a nd alert in no distress. Afebrile. CVA tenderness with percussion. Plan. White count and renal function and improved. We will reevaluate following pain meds. Patient still very uncomfortable and now vomiting. We will admit.
[2018-07-27] MEDS ORDERED: *HR* Promethazine 25 MG/ML VIAL IVP ONE (00:23)
--- NOTE | 2018-07-27 00:49 | Emergency Department Note ---
Addendum entered and electronically signed by Nadira Cox 07/27/18 08:45: Leukocytosis-worsening white count even has been on antibiotic. Blood culture was drawn in the ER. Will restart Zosyn while awaiting further culture. Original Note: Disposition Clinical Impression: Ureteral stone, KYLAH (acute kidney injury), Left flank pain Intractable vomiting Qualifiers: Vomiting type: unspecified Nausea presence: with nausea Qualified Code(s): R11.2 - Nausea with vomiting, unspecified Disposition: Admitted As Inpatient Condition: Fair Referrals: Rosalia Smith CNP [Primary Care Provider] - Forms: ED Satisfaction Letter, Work/School Release General Adult HPI - General Chief complaint: ED General Medical Stated complaint: Kidney infection sent by Dr Cancino Time Seen by Provider: 07/26/18 21:48 Source: patient Limitations: no limitations Nursing Notes Reviewed: Yes Vital Signs Reviewed: Yes - History of Present Illness HPI Narrative: 38-year-old female presents emergency department with concern for left-sided flank pain. Patient was admitted to the hospital for an infected ureteral stone yesterday. She left AGAINST MEDICAL ADVICE this morning. Patient did have an acute kidney injury as well. She was started on ciprofloxacin outpatient. Patient came in because she was having worsening pain and nausea. Patient stated that she was sent home with antibiotics for medication. Patient not having any dysuria. Pain Scale: 6 - Related Data Home Medications Medication Instructions Recorded Confirmed FLUoxetine HCl [Prozac] 20 mg PO DAILY 09/14/17 07/20/18 Levothyroxine Sodium [Synthroid] 200 mcg PO 0630 09/14/17 07/20/18 Oxybutynin [Ditropan] 5 mg PO DAILY 01/28/18 07/20/18 Previous Rx's Medication Instructions Recorded Naproxen [Naprosyn] 500 mg PO BID #10 tablet 07/20/18 Allergies Allergy/AdvReac Type Severity Reaction Status Date / Time aspirin Allergy Vomiting Verified 10/15/17 20:32 All systems ED: reviewed and negative except as stated. Review of Systems: As Per HPI Constitutional: Reports: fever Cardiovascular: Denies: chest pain Respiratory: Denies: dyspnea Gastrointestinal: Reports: abdominal pain, nausea, vomiting Genitourinary: Denies: urgency, dysuria Musculoskeletal: Reports: back pain Past Medical History - Past Medical History Attestation: Yes The following information was validated with the patient. 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 Absent: respiratory distress - Cardiovascular Cardiovascular exam: Present: regular rate, normal rhythm, normal heart sounds - Abdominal Exam Abdominal exam: Present: soft, tenderness. Absent: distention, guarding, rebound, rigidity - Extremities Exam Extremities exam: Present: normal capillary refill - Back Exam Back exam: Present: CVA tenderness (L). Absent: CVA tenderness (R) - Neurological Exam Neurological exam: Present: alert, oriented X3 - Psychiatric Psychiatric exam: Present: normal affect, normal mood - Skin Skin exam: Present: warm, dry, intact, normal color Course Vital Signs Temperature 98.4 F 07/26/18 21:10 Pulse Rate 72 07/26/18 21:10 Respiratory Rate 17 07/26/18 21:10 Blood Pressure 118/66 07/26/18 21:10 O2 Sat by Pulse Oximetry 95 07/26/18 21:10 Temperature 98.4 F 07/26/18 21:10 Pulse Rate 72 07/26/18 21:10 Respiratory Rate 17 07/26/18 21:10 Blood Pressure 118/66 07/26/18 21:10 O2 Sat by Pulse Oximetry 95 07/26/18 21:10 Oxygen Delivery Oxygen Delivery Room Air Medical Decision Making - [facility] Narrative Medical decision making narrative: 38-year-old female presents to the emergency department with concern for left flank pain, nausea, vomiting in the setting of a known ureteral stone. We will obtain labs. Patient had improvement of her acute kidney injury from earlier today, however, her creatinine still elevated. Above her baseline. Patient's urine still appeared to be infected. She was given a dose of Cipro here in the emergency department IV. She was also given fluids. Patient was given morphine as well as Zofran. A few hours after medication administration, patient was still having vomiting. Patient requests to stay in the hospital tonight to further manage her intractable pain and vomiting. Spoke with Dr. Shabazz who agreed to accept the patient for admission. I did place a urology consult for them to come by and see her in the morning. - Lab Data Result diagrams: 07/26/18 21:55 07/26/18 21:55 Lab Results 07/26/18 07/26/18 07/26/18 Range/Units 21:52 21:52 21:55 WBC 19.4 H (4.3-11.1) K/mcL RBC 3.95 (3.82-4.97) M/mcL Hgb 11.5 (11.5-15.4) g/dL Hct 35.5 (35.3-44.9) % MCV 89.9 (83.0-100.0) fL MCH 29.1 (28.0-33.3) pg MCHC 32.4 (31.6-35.5) g/dL RDW 14.5 (11.5-14.5) % Plt Count 173 (140-400) K/mcL MPV 12.3 (9.4-12.4) fL Immature Gran % 2.5 (0-4) % Seg Neutrophils % 87.5 % Lymphocytes % 5.5 % Monocytes % 3.8 % Eosinophils % 0.5 % Basophils % 0.2 % Neutrophils # 17.0 H (1.6-8.9) K/mcL Lymphocytes # 1.1 (0.6-4.6) K/mcL Monocytes # 0.7 (0.0-1.3) K/mcL Eosinophils # 0.1 (0.0-0.6) K/mcL Basophils # 0.0 (0.0-0.2) K/mcL Dohle Bodies Present A (Not Present) Uzair Cells 1+ A (Not Present) Sodium (136-145) mEq/L Potassium (3.5-5.1) mEq/L Chloride (98-107) mEq/L Carbon Dioxide (23-29) mEq/L BUN (6-20) mg/dL Creatinine (0.60-1.20) mg/dL Est GFR ( Amer) (> 60) Est GFR (Non-Af Amer) (> 60) BUN/Creatinine Ratio (6-26) Glucose (70-105) mg/dL Calculated Osmolality (280-300) Lactic Acid (0.5-2.2) mmol/L Calcium (8.6-10.3) mg/dL Total Bilirubin (0.3-1.0) mg/dL Direct Bilirubin (0.0-0.2) mg/dL Indirect Bilirubin (0.0-1.2) mg/dL AST (13-39) Units/L ALT (7-52) Units/L Alkaline Phosphatase (34-104) Units/L Serum Total Protein (6.4-8.9) g/dL Albumin (3.5-5.7) g/dL Globulin (2.4-3.5) g/dL Albumin/Globulin Ratio (1.1-2.2) Urine Color Yellow (Yellow) Urine Clarity Turbid A (Clear) Urine pH 6.0 (5.0-8.0) pH Units Ur Specific [place] 1.015 (1.010-1.025) Urine Protein 100 H (Neg-Trace) mg/dL Urine Glucose (UA) Normal (Normal) mg/dL Urine Ketones Negative (Negative) mg/dL Urine Blood Large H (Negative) Urine Nitrite Negative (Negative) Urine Bilirubin Small H (Negative) Urine Urobilinogen Normal (Normal) mg/dL Ur Leukocyte Esterase Large H (Negative) Urine Microscopic RBC 50-100 H (0-3) per hpf Urine Microscopic WBC 50-100 H (0-3) per hpf Ur Squamous Epith Cells Many H (None-Few) per lpf Urine Bacteria Moderate H (None-Few) per hpf Hyaline Casts None Seen (None-Few) per lpf Ur Culture Indicated? NO. A (NO) Urine Test Negative (Negative) 07/26/18 07/26/18 Range/Units 21:55 22:34 WBC (4.3-11.1) K/mcL RBC (3.82-4.97) M/mcL Hgb (11.5-15.4) g/dL Hct (35.3-44.9) % MCV (83.0-100.0) fL MCH (28.0-33.3) pg MCHC (31.6-35.5) g/dL RDW (11.5-14.5) % Plt Count (140-400) K/mcL MPV (9.4-12.4) fL Immature Gran % (0-4) % Seg Neutrophils % % Lymphocytes % % Monocytes % % Eosinophils % % Basophils % % Neutrophils # (1.6-8.9) K/mcL Lymphocytes # (0.6-4.6) K/mcL Monocytes # (0.0-1.3) K/mcL Eosinophils # (0.0-0.6) K/mcL Basophils # (0.0-0.2) K/mcL Dohle Bodies (Not Present) [place] Cells (Not Present) Sodium 138 (136-145) mEq/L Potassium 3.7 (3.5-5.1) mEq/L Chloride 107 (98-107) mEq/L Carbon Dioxide 21 L (23-29) mEq/L BUN 34 H (6-20) mg/dL Creatinine 1.66 H (0.60-1.20) mg/dL Est GFR ( Amer) 42 L (> 60) Est GFR (Non-Af Amer) 34 L (> 60) BUN/Creatinine Ratio 20 (6-26) Glucose 84 (70-105) mg/dL Calculated Osmolality 293 (280-300) Lactic Acid 0.6 (0.5-2.2) mmol/L Calcium 8.5 L (8.6-10.3) mg/dL Total Bilirubin 0.3 (0.3-1.0) mg/dL Direct Bilirubin 0.1 (0.0-0.2) mg/dL Indirect Bilirubin 0.2 (0.0-1.2) mg/dL AST 11 L (13-39) Units/L ALT 7 (7-52) Units/L Alkaline Phosphatase 76 (34-104) Units/L Serum Total Protein 5.8 L (6.4-8.9) g/dL Albumin 3.1 L (3.5-5.7) g/dL Globulin 2.7 (2.4-3.5) g/dL Albumin/Globulin Ratio 1.1 (1.1-2.2) Urine Color (Yellow) Urine Clarity (Clear) Urine pH (5.0-8.0) pH Units Ur Specific [place] (1.010-1.025) Urine Protein (Neg-Trace) mg/dL Urine Glucose (UA) (Normal) mg/dL Urine Ketones (Negative) mg/dL Urine Blood (Negative) Urine Nitrite (Negative) Urine Bilirubin (Negative) Urine Urobilinogen (Normal) mg/dL Ur Leukocyte Esterase (Negative) Urine Microscopic RBC (0-3) per hpf Urine Microscopic WBC (0-3) per hpf Ur Squamous Epith Cells (None-Few) per lpf Urine Bacteria (None-Few) per hpf Hyaline Casts (None-Few) per lpf Ur Culture Indicated? (NO) Urine Test (Negative)
[2018-07-27] MEDS ORDERED: Ringers Solution, Lactated 1,000 ML IVC SCH (01:30)
--- NOTE | 2018-07-27 08:18 | Internal Med History&Physical ---
Date of Encounter: 07/27/18 Time of Encounter: 08:15 Internal Medicine - H&P: HPI Chief complaint: Left flank pain Admitted From: Emergency Dept History of present illness: Ms. Garcia is a 38 year old female patient presented to ER with worsening of left-sided flank pain associated with nausea. Patient left AGAINST MEDICAL ADVICE yesterday on Levaquin. Patient had ureter stent placement on 07/25/2018 by urologist. In ER elevated white count, creatinine level was found. Patient is being admitted for UTI, obstructive uropathy, AK eye. Patient had initial urine culture done at [facility]. Patient had subjective fever with chills, nausea, left flank pain but denies chest pain short of breath headache dizziness diarrhea or urinary complaint. Past Med Surg Social Fam HX - Past Medical History Medical history: kidney stones, thyroid disease Psychiatric history: depression - Past Surgical History Additional surgical history: CYST REMOVED LT HAND. CARPAL TUNNEL SURGERY. tubes in ears. - Social History Smoking Status: Current every day smoker Smokeless Tobacco Status: No Alcohol use: none Drug use: none - Family History Mother Living Status: Still Living Hx Family Endocrine Disorder: Yes (Diabetic) Father Living Status: Internal Medicine - H&P: Meds FLUoxetine HCl [Prozac] 20 mg PO DAILY 09/14/17 [History] Levothyroxine Sodium [Synthroid] 200 mcg PO 0630 09/14/17 [History] Oxybutynin [Ditropan] 5 mg PO DAILY 01/28/18 [History] Naproxen [Naprosyn] 500 mg PO BID #10 tablet 07/20/18 [Rx] Allergy/AdvReac Type Severity Reaction Status Date / Time aspirin Allergy Vomiting Verified 10/15/17 20:32 All Systems PM: A 10-system review of systems was performed and is negative for pertinent findings except as documented above in the HPI. - Constitutional Vitals: Temp Pulse Resp BP Pulse Ox 98.9 F 63 16 96/54 99 07/27/18 08:04 07/27/18 08:04 07/27/18 08:04 07/27/18 08:04 07/27/18 08:04 Exam: General appearance: No acute distress, A&O X 3, obese Head exam: Atraumatic Eye exam: EOMI, PERRLA ENT exam: Moist oral mucosa Neck nontender, supple Respiratory exam: Clear to auscultation bilaterally Cardiovascular exam: Regular rate and rhythm, no systolic murmur Abdominal exam: Soft, nontender, nondistended, positive bowel sounds, left flank tenderness Extremities exam: No calf tenderness, no pedal edema Present: Skin-no rash, warm, dry, intact Neurological exam: CN II-XII intact, no focal deficits. No facial droop. Normal speech. Internal Med - H&P Results - Labs CBC & Chem 7: 07/26/18 21:55 07/26/18 21:55 Labs: Short CBC 07/26/18 Range/Units 21:55 WBC 19.4 H (4.3-11.1) K/mcL Hgb 11.5 (11.5-15.4) g/dL Hct 35.5 (35.3-44.9) % Plt Count 173 (140-400) K/mcL Neutrophils # 17.0 H (1.6-8.9) K/mcL BMP 07/26/18 21:55 Sodium 138 Potassium 3.7 Chloride 107 Carbon Dioxide 21 L BUN 34 H Creatinine 1.66 H Glucose 84 Calcium 8.5 L Liver Function 07/26/18 Range/Units 21:55 Total Bilirubin 0.3 (0.3-1.0) mg/dL Direct Bilirubin 0.1 (0.0-0.2) mg/dL AST 11 L (13-39) Units/L ALT 7 (7-52) Units/L Alkaline Phosphatase 76 (34-104) Units/L Albumin 3.1 L (3.5-5.7) g/dL Urine 07/26/18 Range/Units 21:52 Urine Color Yellow (Yellow) Urine Clarity Turbid A (Clear) Urine pH 6.0 (5.0-8.0) pH Units Ur Specific [place] 1.015 (1.010-1.025) Urine Protein 100 H (Neg-Trace) mg/dL Urine Glucose (UA) Normal (Normal) mg/dL - Assessment and Plan (1) KYLAH (acute kidney injury) Current Visit: Yes Status: Acute Assessment and plan: Trending up creatinine level with 1.6 on admission. Yesterday 1.4. Could be and also due to obstructive uropathy. Gentle hydration normal saline 100 over per hour with a strict I&O's. Avoid nephrotoxic drug. Will also consult nephrology. BMP monitoring (2) Obstructive uropathy Current Visit: No Status: Acute Assessment and plan: Due to left ureter stone. Status post ureter stent placement on 07/25/2018. Will consult urologist as well if needed. (3) Left flank pain Current Visit: Yes Status: Acute Assessment and plan: Due to above (4) UTI (urinary tract infection) Current Visit: Yes Status: Acute Assessment and plan: Urine culture with gram-negative jaimee and final sensitivity report is awaited [facility]. Will get the result from that hospital. Meanwhile will start IV Rocephin. (5) Hypothyroidism Current Visit: Yes Status: Acute Assessment and plan: Continue home medicine. Qualifiers: Hypothyroidism type: unspecified Qualified Code(s): E03.9 - Hypothyroidism, unspecified (6) DVT prophylaxis Current Visit: Yes Status: Acute Assessment and plan: Heparin subcutaneous - Time Spent With Patient Total time spent is greater than 50% in coordination of care (as documented) at patient's floor/unit and/or counseling patient: 25 - 35 minutes
[2018-07-27] MEDS ORDERED: *HR* HYDROcodone/Acet 5/325 mg TABLET PO PRN (08:20)
[2018-07-27] MEDS ORDERED: Ondansetron 4 MG/2 ML VIAL IVP PRN (08:20)
[2018-07-27] MEDS ORDERED: Acetaminophen 325 MG TABLET PO PRN (08:20)
[2018-07-27] MEDS ORDERED: Naloxone 0.4 MG/ML INJ IVP PRN (08:20)
--- NOTE | 2018-07-27 08:52 | Urology - Consult Note ---
<Sasha Okeefe N - Last Filed: 07/27/18 08:49> Date of Encounter: 07/27/18 Time of Encounter: 08:50 - Assessment and Plan (1) Left flank pain Current Visit: Yes Status: Acute Assessment and plan: Patient is a 38-year-old female who presents with left flank pain following left ureteral stent placement. Patient was admitted for pain control. Vital signs are currently stable and afebrile. White blood cell count remains elevated at 19.4, and serum creatinine is improved to 1.66. Patient is receiving IV Zosyn f or Escherichia coli urinary tract infection. (2) Ureteral stone Current Visit: Yes Status: Acute Assessment and plan: Patient is a 38-year-old female who presents with a left ureteral stone. Patient is 2 days status post cystoscopy, left retrograde ureteral pyelography with intraoperative interpretation of radial graphic images in real time by surgeon to facilitate procedure, left double-J stent placement. Patient will continue with indwelling stent until urinary tract infection is resolved. We w ill plan an outpatient urology follow-up to discuss staged stone extraction procedure. (3) UTI (urinary tract infection) Current Visit: Yes Status: Acute Assessment and plan: Patient is 38-year-old female who presents with Escherichia coli urinary tract infection and obstructing left ureteral stone. Patient is status post left ureteral stent placement. Vital signs are stable and afebrile. White blood cell count is trending down but is still elevated at 19.4. Patient is receiving IV Zosyn. Qualifiers: Urinary tract infection type: acute cystitis Hematuria presence: without hematuria Qualified Code(s): N30.00 - Acute cystitis without hematuria Urology CN:HPI Consult date: 07/27/18 Reason for consult Urology: Other Requesting physician: Yaw Benavidez History of present illness: Patient is a 38-year-old female who presents 2 days status post cystoscopy, left retrograde ureteral pyelography with intraoperative interpretation of radial graphic images in real time by surgeon to facilitate procedure, left double-J stent placement. Patient left AGAINST MEDICAL ADVICE yesterday afternoon, and she represented to the emergency department this morning with complaints of left flank pain. Patient's urine culture from 08/03/2018 is positive for Escherichia coli. Patient was discharged AMA with oral Levaquin. Currently, patient is lying in bed, and she admits to chills, dysuria, frequency, urgency, and left flank pain. Patient denies any fever, gross hematuria or incontinence. Past Med Surg Social Fam HX - Past Medical History Medical history: kidney stones, thyroid disease Psychiatric history: depression - Past Surgical History Additional surgical history: CYST REMOVED LT HAND. CARPAL TUNNEL SURGERY. tubes in ears. - Social History Smoking Status: Current every day smoker Smokeless Tobacco Status: No Alcohol use: none Drug use: none - Family History Mother Living Status: Still Living Hx Family Endocrine Disorder: Yes (Diabetic) Father Living Status: Medications and Allergies FLUoxetine HCl [Prozac] 20 mg PO DAILY 09/14/17 [History] Levothyroxine Sodium [Synthroid] 200 mcg PO 0630 09/14/17 [History] Oxybutynin [Ditropan] 5 mg PO DAILY 01/28/18 [History] Naproxen [Naprosyn] 500 mg PO BID #10 tablet 07/20/18 [Rx] Allergy/AdvReac Type Severity Reaction Status Date / Time aspirin Allergy Vomiting Verified 10/15/17 20:32 Review of Systems - Constitutional chills, fatigue, no fever(s) - EENT Nose, mouth and throat: no dizziness, no headache(s) - Cardiovascular no chest pain, no diaphoresis, no dyspnea - Respiratory no cough, no dyspnea - Gastrointestinal abdominal pain, nausea, no vomiting - Genitourinary Genitourinary: dysuria, flank pain, urinary frequency, urinary urgency, no change in urinary stream, no difficulty urinating, no hematuria, no urinary hesitancy, no urinary incontinence - Musculoskeletal back pain, no muscle weakness - Integumentary no erythema, no rash - Neurological no confusion, no syncope - Psychiatric no anxiety, no confusion - Hematologic/Lymphatic no easy bleeding, no easy bruising - Allergic/Immunologic no throat swelling, no wheezing Exam Initial Vital Signs Temp Pulse Resp BP Pulse Ox 98.4 F 72 17 118/66 95 07/26/18 21:10 07/26/18 21:10 07/26/18 21:10 07/26/18 21:10 07/26/18 21:10 - General physical appearance Present: no distress, moderate pain - Eyes Present: PERRL, normal ocular movement - ENT Present: normal nares, no hearing loss, no congestion - Neck Present: no masses, trachea midline, no lymphadenopathy - Respiratory Present: normal respiratory effort - Cardiovascular Cardiovascular exam IM: RRR - Abdomen Abdomen: Present: soft, non tender. Absent: distended - Integumentary Present: no rash, no abnormal pigmentation - Neurologic Present: normal coordination - Musculoskeletal Present: other (Normal posture) Urology Results - Labs 07/26/18 21:55 07/26/18 21:55 Abnormal lab results WBC 19.4 K/mcL (4.3-11.1) H 07/26/18 21:55 Neutrophils # 17.0 K/mcL (1.6-8.9) H 07/26/18 21:55 Dohle Bodies Present (Not Present) A 07/26/18 21:55 [place] Cells 1+ (Not Present) A 07/26/18 21:55 Carbon Dioxide 21 mEq/L (23-29) L 07/26/18 21:55 BUN 34 mg/dL (6-20) H 07/26/18 21:55 Creatinine 1.66 mg/dL (0.60-1.20) H 07/26/18 21:55 Est GFR ( Amer) 42 (> 60) L 07/26/18 21:55 Est GFR (Non-Af Amer) 34 (> 60) L 07/26/18 21:55 Calcium 8.5 mg/dL (8.6-10.3) L 07/26/18 21:55 AST 11 Units/L (13-39) L 07/26/18 21:55 Serum Total Protein 5.8 g/dL (6.4-8.9) L 07/26/18 21:55 Albumin 3.1 g/dL (3.5-5.7) L 07/26/18 21:55 Urine Clarity Turbid (Clear) A 07/26/18 21:52 Urine Protein 100 mg/dL (Neg-Trace) H 07/26/18 21:52 Urine Blood Large (Negative) H 07/26/18 21:52 Urine Bilirubin Small (Negative) H 07/26/18 21:52 Ur Leukocyte Esterase Large (Negative) H 07/26/18 21:52 Urine Microscopic RBC 50-100 per hpf (0-3) H 07/26/18 21:52 Urine Microscopic WBC 50-100 per hpf (0-3) H 07/26/18 21:52 Ur Squamous Epith Cells Many per lpf (None-Few) H 07/26/18 21:52 Urine Bacteria Moderate per hpf (None-Few) H 07/26/18 21:52 Ur Culture Indicated? NO. (NO) A 07/26/18 21:52 Diabetes panel 07/26/18 Range/Units 21:55 Sodium 138 (136-145) mEq/L Potassium 3.7 (3.5-5.1) mEq/L Chloride 107 (98-107) mEq/L Carbon Dioxide 21 L (23-29) mEq/L BUN 34 H (6-20) mg/dL Creatinine 1.66 H (0.60-1.20) mg/dL Glucose 84 (70-105) mg/dL Calcium 8.5 L (8.6-10.3) mg/dL AST 11 L (13-39) Units/L ALT 7 (7-52) Units/L Alkaline Phosphatase 76 (34-104) Units/L Albumin 3.1 L (3.5-5.7) g/dL Calcium panel 07/26/18 Range/Units 21:55 Calcium 8.5 L (8.6-10.3) mg/dL Albumin 3.1 L (3.5-5.7) g/dL Pituitary panel 07/26/18 Range/Units 21:55 Sodium 138 (136-145) mEq/L Potassium 3.7 (3.5-5.1) mEq/L Chloride 107 (98-107) mEq/L Carbon Dioxide 21 L (23-29) mEq/L BUN 34 H (6-20) mg/dL Creatinine 1.66 H (0.60-1.20) mg/dL Glucose 84 (70-105) mg/dL Calcium 8.5 L (8.6-10.3) mg/dL Adrenal panel 07/26/18 Range/Units 21:55 Sodium 138 (136-145) mEq/L Potassium 3.7 (3.5-5.1) mEq/L Chloride 107 (98-107) mEq/L Carbon Dioxide 21 L (23-29) mEq/L BUN 34 H (6-20) mg/dL Creatinine 1.66 H (0.60-1.20) mg/dL Glucose 84 (70-105) mg/dL Calcium 8.5 L (8.6-10.3) mg/dL Total Bilirubin 0.3 (0.3-1.0) mg/dL AST 11 L (13-39) Units/L ALT 7 (7-52) Units/L Alkaline Phosphatase 76 (34-104) Units/L Albumin 3.1 L (3.5-5.7) g/dL All other labs normal. Consult Discharge Plan - Plan Referrals: Rosalia Smith, [employer] [Primary Care Provider] - <Jaspal Cancino - Last Filed: 07/27/18 14:40> Date of Encounter: 07/27/18 - Assessment and Plan (1) UTI (urinary tract infection) Current Visit: Yes Status: Acute Assessment and plan: Patient seen and examined independently. I am in agreement with the assessment and plan as outlined by our Urologic Surgery Department Physician Fly Tier, Maldonado. Discussed findings with patient in detail. Patient directed to head to the ER last evening via phone. Workup consistent with pyelonephritis. Patient feeling better with IV hydration and IV antibiotics. Plan: Culture directed antibiotics per primary service for total of 10-14 days. Follow-up with me as outpatient next week as scheduled. Qualifiers: Urinary tract infection type: acute cystitis Hematuria presence: without hematuria Qualified Code(s): N30.00 - Acute cystitis without hematuria (2) Hydronephrosis, left Current Visit: No Status: Acute (3) Left ureteral stone Current Visit: No Status: Acute (4) KYLAH (acute kidney injury) Current Visit: Yes Status: Acute (5) Obstructive uropathy Current Visit: No Status: Acute Exam Initial Vital Signs Temp Pulse Resp BP Pulse Ox 98.4 F 72 17 118/66 95 07/26/18 21:10 07/26/18 21:10 07/26/18 21:10 07/26/18 21:10 07/26/18 21:10 Urology Results - Labs 07/26/18 21:55 07/26/18 21:55 Abnormal lab results WBC 19.4 K/mcL (4.3-11.1) H 07/26/18 21:55 Neutrophils # 17.0 K/mcL (1.6-8.9) H 07/26/18 21:55 Dohle Bodies Present (Not Present) A 07/26/18 21:55 [place] Cells 1+ (Not Present) A 07/26/18 21:55 Carbon Dioxide 21 mEq/L (23-29) L 07/26/18 21:55 BUN 34 mg/dL (6-20) H 07/26/18 21:55 Creatinine 1.66 mg/dL (0.60-1.20) H 07/26/18 21:55 Est GFR ( Amer) 42 (> 60) L 07/26/18 21:55 Est GFR (Non-Af Amer) 34 (> 60) L 07/26/18 21:55 Calcium 8.5 mg/dL (8.6-10.3) L 07/26/18 21:55 AST 11 Units/L (13-39) L 07/26/18 21:55 Serum Total Protein 5.8 g/dL (6.4-8.9) L 07/26/18 21:55 Albumin 3.1 g/dL (3.5-5.7) L 07/26/18 21:55 Urine Clarity Turbid (Clear) A 07/26/18 21:52 Urine Protein 100 mg/dL (Neg-Trace) H 07/26/18 21:52 Urine Blood Large (Negative) H 07/26/18 21:52 Urine Bilirubin Small (Negative) H 07/26/18 21:52 Ur Leukocyte Esterase Large (Negative) H 07/26/18 21:52 Urine Microscopic RBC 50-100 per hpf (0-3) H 07/26/18 21:52 Urine Microscopic WBC 50-100 per hpf (0-3) H 07/26/18 21:52 Ur Squamous Epith Cells Many per lpf (None-Few) H 07/26/18 21:52 Urine Bacteria Moderate per hpf (None-Few) H 07/26/18 21:52 Ur Culture Indicated? NO. (NO) A 07/26/18 21:52 Diabetes panel 07/26/18 Range/Units 21:55 Sodium 138 (136-145) mEq/L Potassium 3.7 (3.5-5.1) mEq/L Chloride 107 (98-107) mEq/L Carbon Dioxide 21 L (23-29) mEq/L BUN 34 H (6-20) mg/dL Creatinine 1.66 H (0.60-1.20) mg/dL Glucose 84 (70-105) mg/dL Calcium 8.5 L (8.6-10.3) mg/dL AST 11 L (13-39) Units/L ALT 7 (7-52) Units/L Alkaline Phosphatase 76 (34-104) Units/L Albumin 3.1 L (3.5-5.7) g/dL Calcium panel 07/26/18 Range/Units 21:55 Calcium 8.5 L (8.6-10.3) mg/dL Albumin 3.1 L (3.5-5.7) g/dL Pituitary panel 07/26/18 Range/Units 21:55 Sodium 138 (136-145) mEq/L Potassium 3.7 (3.5-5.1) mEq/L Chloride 107 (98-107) mEq/L Carbon Dioxide 21 L (23-29) mEq/L BUN 34 H (6-20) mg/dL Creatinine 1.66 H (0.60-1.20) mg/dL Glucose 84 (70-105) mg/dL Calcium 8.5 L (8.6-10.3) mg/dL Adrenal panel 07/26/18 Range/Units 21:55 Sodium 138 (136-145) mEq/L Potassium 3.7 (3.5-5.1) mEq/L Chloride 107 (98-107) mEq/L Carbon Dioxide 21 L (23-29) mEq/L BUN 34 H (6-20) mg/dL Creatinine 1.66 H (0.60-1.20) mg/dL Glucose 84 (70-105) mg/dL Calcium 8.5 L (8.6-10.3) mg/dL Total Bilirubin 0.3 (0.3-1.0) mg/dL AST 11 L (13-39) Units/L ALT 7 (7-52) Units/L Alkaline Phosphatase 76 (34-104) Units/L Albumin 3.1 L (3.5-5.7) g/dL All other labs normal.
[2018-07-27] MEDS ORDERED: cefTRIAXone 1,000 MG in Water for inj. (sterile) 20 ML 10 ML IVP SCH (09:00)
[2018-07-27] MEDS: 0.9 % Sodium Chloride 1,000 ML IVC SCH ×2 (10:49→15:36)
--- NOTE | 2018-07-27 12:15 | Nephrology Consult Note ---
Date of Encounter: 07/27/18 Time of Encounter: 11:00 Assessment and Plan (1) KYLAH (acute kidney injury) Current Visit: Yes Status: Acute Nonoliguric, KYLAH most likely d/t infection. No indications for TRANSMITTER OPERATOR but in the meantime, I recommend follow a renal protective/conservative strategy by avoiding nephrotoxins as able. Continue IVF, which should help improve renal function. Renal function likely to improve with simple IVF and supportive care. Thank you for consult'g the [facility]. (2) Left flank pain Current Visit: Yes Status: Acute (3) UTI (urinary tract infection) Current Visit: Yes Status: Acute Qualifiers: Urinary tract infection type: acute cystitis Hematuria presence: without hematuria Qualified Code(s): N30.00 - Acute cystitis without hematuria History of Present Illness - Reason for Consult Consult date: 07/27/18 Acute Kidney Injury Requesting physician: Nadira Cox - Chief Complaint KYLAH - History of Present Illness 38 y/o WF who presented with an KYLAH s/p ureteral stent. Nephro was consulted d/t the elevated SCr. She was already started on IVF. She denied XS use of NSAIDs. Her spouse was present, and the pt was seen in the ER/Hold unit. She affirmed rojo ving flank pains, but trending better after the urologic intervention. She reported after leaving she had ongoing F/C/fatigue but now feeling much impr'd s/p IVF. FHx: she did not affirm having relatives with ESRD. Past Med Surg Social Fam HX - Past Medical History Medical history: kidney stones, thyroid disease Psychiatric history: depression - Past Surgical History Additional surgical history: CYST REMOVED LT HAND. CARPAL TUNNEL SURGERY. tubes in ears. - Social History Smoking Status: Current every day smoker Smokeless Tobacco Status: No Alcohol use: none Drug use: none - Family History Mother Living Status: Still Living Hx Family Endocrine Disorder: Yes (Diabetic) Father Living Status: Medications and Allergies RX: FLUoxetine HCl [Prozac] 20 mg PO DAILY 09/14/17 [History] RX: Levothyroxine Sodium [Synthroid] 200 mcg PO 0630 09/14/17 [History] Oxybutynin [Ditropan] 5 mg PO DAILY 01/28/18 [History] Naproxen [Naprosyn] 500 mg PO BID #10 tablet 07/20/18 [Rx] Allergy/AdvReac Type Severity Reaction Status Date / Time aspirin Allergy Vomiting Verified 10/15/17 20:32 Review of Systems All Systems: reviewed and no additional remarkable complaints except as stated Exam - Vital Signs Vital signs: Initial Vital Signs Temp Pulse Resp BP Pulse Ox 98.4 F 72 17 118/66 95 07/26/18 21:10 07/26/18 21:10 07/26/18 21:10 07/26/18 21:10 07/26/18 21:10 Vital Signs - Last 8 Hours Temp Pulse Resp BP Pulse Ox 07/27/18 11:53 98.7 F 74 14 106/67 99 07/27/18 08:04 98.9 F 63 16 96/54 99 07/27/18 04:24 98.5 F 79 16 93/56 93 Intake and Output 07/26/18 07/27/18 07/27/18 23:59 07:59 15:59 Other: Meal NPO Stool Characteristics Normal for Patient Weight 110.223 kg 110.2 kg Patient Weight 07/27/18 23:59 Weight 110.2 kg - General Appearance General appearance: well-developed, well-nourished, appears started age EENT: ATNC, PERRL, mucous membranes moist Neck: supple Respiratory: clear Cardiology: no murmurs, no edema, regular rate, regular rhythm, normal S1, normal S2 Gastrointestinal: normoactive bowel sounds, tenderness (mild flank ttp), no guarding Integumentary: warm and dry Neurologic: no focal deficit, no asterixis, alert and oriented x3 Musculoskeletal: no deformities, no erythema, no cyanosis Psychiatric: mood/affect appropriate, cooperative Results - Lab Results 07/28/18 01:10 07/28/18 01:10 Most recent lab results Calcium 8.5 mg/dL (8.6-10.3) L 07/26/18 21:55 Consult Discharge Plan - Plan Referrals: Rosalia Smith CNP [Primary Care Provider] -
[2018-07-27] MEDS: Piperacillin/Tazobactam 3.375 GM in 0.9 % Sodium Chloride Mini Bag 100 ML IVPB SCH ×2 (15:40→23:33)
[2018-07-27] MEDS: *HR* Heparin 5,000 UNIT/ML VIAL SQ SCH (18:08)
[2018-07-28] MEDS: 0.9 % Sodium Chloride 1,000 ML IVC SCH (01:06)
[2018-07-28 02:10] LABS: Basophils % 0.4 %; Eosinophils # 0.2 K/mcL (0.0-0.6); Eosinophils % 2.7 %; Hematocrit 32.7 % (35.3-44.9); Hemoglobin 10.1 g/dL (11.5-15.4); Immature Granulocytes % 0.9 % (0-4); Lymphocytes # 1.1 K/mcL (0.6-4.6); Lymphocytes % 14.2 %; Mean Corpuscular HGB Conc 30.9 g/dL (31.6-35.5); Mean Corpuscular Hemoglobin 28.5 pg (28.0-33.3); Mean Corpuscular Volume 92.4 fL (83.0-100.0); Mean Platelet Volume 12.1 fL (9.4-12.4); Monocytes # 0.8 K/mcL (0.0-1.3); Monocytes % 9.8 %; Neutrophils # 5.8 K/mcL (1.6-8.9); Platelet Count 160 K/mcL (140-400); Red Blood Count 3.54 M/mcL (3.82-4.97); Red Cell Distribution Width 14.7 % (11.5-14.5)
[2018-07-28 02:33] LABS: BUN/Creatinine Ratio 18 (6-26); Blood Urea Nitrogen 21 mg/dL (6-20); Calcium 7.6 mg/dL (8.6-10.3); Carbon Dioxide 23 mEq/L (23-29); Chloride 111 mEq/L (98-107); Glucose 82 mg/dL (70-105); Osmolality,Calculated 290 (280-300); Sodium 139 mEq/L (136-145); eGFR For Non-African Americans 51 (> 60)
[2018-07-28] MEDS: *HR* Heparin 5,000 UNIT/ML VIAL SQ SCH (05:14)
[2018-07-28 07:25] VITALS: BP 122/78
--- NOTE | 2018-07-28 07:31 | Event Note ---
Date of Encounter: 07/28/18 Time of Encounter: 07:30 - Nephrology Event Note Nephro update: SCr significantly improved with supportive care. No new Nephrology indications/recommendations. So will sign-off. If there are new Nephrology questions, I'd be happy to help.
--- NOTE | 2018-07-28 08:37 | Discharge Summary ---
- NOTES TO OUTPATIENT PROVIDER Notes to Outpatient Provider: Follow with PCP into 3 days-final blood culture report has to be followed. Keep appointment with urologist in 1- 2 weeks Orders not resulted at time of discharge: Pending orders 07/26/18 22:34 Culture,Blood [BC] Stat Date of Encounter: 07/28/18 Time of Encounter: 09:26 - Discharge Diagnosis (1) KYLAH (acute kidney injury) Priority: Primary Status: Acute Assessment and Plan: Now resolved. Trending up creatinine level with 1.6 on admission. Could be and also due to obstructive uropathy. Gentle hydration normal saline was given. Avoid nephrotoxic drug. Consulted nephrology-signed off. (2) Obstructive uropathy Priority: Primary Status: Acute Assessment and Plan: Due to left ureter stone. Status post ureter stent placement on 07/25/2018. status post cystoscopy, left retrograde ureteral pyelography with intraoperative interpretation of radial graphic images in real time by surgeon to facilitate procedure, left double-J stent placement. Consulted urologists (3) Left flank pain Priority: Primary Status: Acute Assessment and Plan: Due to above. Improving (4) UTI (urinary tract infection) Priority: Primary Status: Acute Assessment and Plan: Urine culture with Escherichia coli and sensitivity reviewed Qualifiers: Urinary tract infection type: acute cystitis Hematuria presence: without hematuria Qualified Code(s): N30.00 - Acute cystitis without hematuria (5) Hypothyroidism Priority: Secondary Status: Acute Assessment and Plan: Continue home medicine. Qualifiers: Hypothyroidism type: unspecified Qualified Code(s): E03.9 - Hypothyroidism, unspecified Hospital course: Ms. Garcia is a 38 year old female got readmitted for worsening left flank pain, AK eye and leukocytosis. Patient left AMA on the same day of this admission. During his stay IV fluid, IV antibiotic and pain management is started. Urine culture report followed at [place]. Repeat lab with normal white count and creatinine level therefore change to oral antibiotic. Blood culture report with no growth yet. Patient is highly adamant to go home again as she does not want to miss her daughter's prom though I advised to keep an other day while discontinuing IV fluid and the changing to oral antibiotics this to make sure that clinically she is not getting worse as did happen when she left AMA. I discussed risk and albertina efits in detail. But patient refused to stay and understand the risk to get readmitted. Patient is being discharged on Levaquin 500 milligrams by mouth daily for 7 days. She needs to follow urologists in 1-2 week. Needs to follow-up primary care physician for final blood culture report in 2-3 days. Please see details in the diagnosis section of discharge summary. At the time of discharge patient is clinically and hemodynamically stable with left flank pain improvement. Labs within normal limit. Discharge discussed with: patient, family Time spent discussing smoking cessation with patient: 3 to 10 minutes - Time Spent with Patient Total time spent providing and/or coordinating discharge services: Time spent: Less than 30 minutes - Discharge Medications Prescriptions: No Action FLUoxetine HCl [Prozac] 20 mg PO DAILY Levothyroxine Sodium [Synthroid] 200 mcg PO 629 Oxybutynin [Ditropan] 5 mg PO DAILY Naproxen [Naprosyn] 500 mg PO BID #10 tablet Home Medications: FLUoxetine HCl [Prozac] 20 mg PO DAILY 09/14/17 [History] Levothyroxine Sodium [Synthroid] 200 mcg PO 0630 09/14/17 [History] Oxybutynin [Ditropan] 5 mg PO DAILY 01/28/18 [History] Naproxen [Naprosyn] 500 mg PO BID #10 tablet 07/20/18 [Rx] Allergies/Adverse Reactions: Allergy/AdvReac Type Severity Reaction Status Date / Time aspirin Allergy Vomiting Verified 10/15/17 20:32 Date of admission: 07/27/18 14:26 Primary care physician: Rosalia Smith Consults: 07/27/18 00:23 Consult to Urology [CONS] Stat Consulting Provider: Urology Jasmin Reason for Consult: infected ureteral stone Time Notified: 00:24 Call Completed: No 07/27/18 08:29 Consult to Nephrology [CONS] Routine Consulting Provider: Kidney Jasmin/OSCAR/MARY/MAAME Reason for Consult: KYLAH Call Completed: Yes - Constitutional Vitals: Temp Pulse Resp BP Pulse Ox 98.1 F 55 15 122/78 95 07/28/18 07:18 07/28/18 07:18 07/28/18 07:18 07/28/18 07:18 07/28/18 07:18 Exam: General appearance: No acute distress, A&O X 3 ENT exam: Moist oral mucosa Neck nontender, supple Respiratory exam: Clear to auscultation bilaterally Cardiovascular exam: Regular rate and rhythm, no systolic murmur Abdominal exam: Soft, nontender, nondistended, positive bowel sounds. Mild left flank pain Extremities exam: No calf tenderness, no pedal edema Present: Skin-no rash, warm, dry, intact Neurological exam: Alert, awake, oriented 3, CN II-XII intact, no focal deficits. - Patient Status Disposition: Home, Self-Care Condition: Fair Overall status at discharge: patient is progressing back to baseline - Discharge Instructions Follow Up With: Rosaila Smith CNP [Primary Care Provider] - - Diet and Activity Activity: increase activity as tolerated Diet: advance to your usual diet, low fat, low cholesterol
[2018-07-28] MEDS ORDERED: levoFLOXacin 500 MG TABLET PO SCH (09:00)
== END 2018-07-28 10:14 | disposition home or self-care (01) | DRG 463 ==
LOC: EMEROOARM 20:57 → 2SOUTHHOLD 20:57 → 3ANU 07-27 14:25
PROVIDERS: ADMIT Internal Medicine; ATTEND Internal Medicine